=== PATIENT | male | born 1995 ===

== ENCOUNTER 2021-02-04 07:14 | Emergency (ER) | payer MEDICAID ==
[~2021-02-04] VITALS: Ht 160 cm; Wt 72.1 kg
[2021-02-04 07:47] LABS: Basophils # (auto) 0 10 ^3/uL (0-0.2); Basophils % (auto) 0.6 % (0.0-2.0); Eosinophils # (auto) 0.2 10 ^3/uL (0-0.8); Eosinophils % (auto) 3.7 % (0.0-7.0); Hematocrit 42.1 % (41.0-53.0); Hemoglobin 14.6 g/dL (13.5-17.5); Lymphocytes # (auto) 1.9 10 ^3/uL (0.4-5.4); Lymphocytes % (auto) 42.7 % (10.0-50.0); Mean Corpuscular Hgb Conc. 34.7 g/dL (32.0-36.0); Mean Corpuscular Volume 92.2 fL (80.0-100.0); Monocytes # (auto) 0.3 10 ^3/uL (0-1.3); Monocytes % (auto) 6.6 % (0.0-12.0); Neutrophils # (auto) 2.1 10 ^3/uL (1.6-8.6); Neutrophils % (auto) 46.4 % (37.0-80.0); Nucleated Red Blood Cells % 0.1 %; Red Blood Cells 4.57 10^6/uL (4.5-5.90); Red Cell Distribution Width 12.7 % (11.8-14.3); White Blood Cell 4.5 10^3/uL (4.4-10.8)
[2021-02-04 07:59] LABS: Albumin 3.9 g/dL (3.4-5.0); Calcium 9.1 mg/dL (8.5-10.1); Potassium 3.7 mmol/L (3.5-5.1)
[2021-02-04 08:03] LABS: BUN/Creatinine Ratio 9.9; Total Protein 7.5 g/dL (6.4-8.2)
[2021-02-04 08:24] LABS: INR 1.01 (0.9-1.15); Partial Thromboplastin Time 28.5 sec (23.6-33.0)
[2021-02-04 09:20] VITALS: BP 112/70
== END 2021-02-04 09:34 | disposition home or self-care (01) ==
LOC: ER 07:14
DX: K60.2 Anal fissure, unspecified (principal); K59.00 Constipation, unspecified; F12.10 Cannabis abuse, uncomplicated
CPT/HCPCS: 36415; 74018; 80053; 85025; 85610; 85730

== ENCOUNTER 2021-06-09 20:45 | Emergency (ER) | payer MEDICAID ==
[~2021-06-09] VITALS: Ht 160 cm; Wt 70.3 kg
[2021-06-09 20:46] VITALS: BP 133/84
== END 2021-06-10 00:22 | disposition left against medical advice (07) ==
LOC: ER 20:52
DX: K08.89 Other specified disorders of teeth and supporting structures (principal); Z53.21 Procedure and treatment not carried out due to patient leaving prior to being seen by health care provider